=== PATIENT | female | born 1995 | race African-American/Black ===

== ENCOUNTER 2019-03-11 07:25 | Emergency (ER) | payer OTHER ==
[~2019-03-11] VITALS: Ht 162.6 cm; Wt 122.0 kg
[~2019-03-11 07:25] MED LIST: IRON; PRENATAL TABLE1 EAC3
--- OUTSIDE RECORDS SUMMARY | 2019-03-11 07:30 | XMS REPORT | Clinical Summary ---
Author Author [facility] Organization [facility] Address Unknown Phone Unavailable Care Team Providers Care Social Sciences Lecturer Name Role Phone Risa Wade MD PCP Allergies No Known Allergies Medications No known medications Active Problems Not on file Social History Date Tobacco Use Types Packs/Day Years Used Never Assessed Sex Assigned at Date Recorded Not on file Industry Job Start Date Occupation Not on file Not on file Not on file Travel End Travel History Travel Start No recent travel history available. Last Filed Vital Signs Not on file Plan of Treatment Health Maintenance Due Date Last Done Comments CHLAMYDIA SCREENING 06/08/2017 06/08/2016 INFLUENZA VACCINE 05/02/2019 Results Not on fileafter 03/10/2018 Insurance Type Payer Benefit Subscriber ID Effective Phone Address Plan / Dates Group HMO CIGNA CIGNA OPEN xxxxxxxxxxx 2016-P ACCESS/NET resent WORK HMO [employer] xxxxxxxxx 2016-P [facility]/STAR resent [facility] Advance Directives Patient has advance care planning documents on file. For more information, isabelle llanos contact: Lavell Madrigal [address] [place] [address]
--- OUTSIDE RECORDS SUMMARY | 2019-03-11 07:30 | XMS REPORT ---
Author Author [facility] Address Unknown Phone Unavailable Care Team Providers Care Silk Screen Layout Drafter Name Role Phone Unavailable Unavailable Payers Payer Name Policy Type Policy Number Effective Date Expiration Date Problems This patient has no known problems. Allergies, Adverse Reactions, Alerts Allergy Name Allergy Type Status Severity Reaction(s) Onset Date Inactive Date Treating Clinician Comments No Known Allergies DA Active U 2018-02-28 00:00:00 Medications This patient has no known medications.
[2019-03-11] MEDS ORDERED: SODIUM CHLORIDE 0.9% 1000ML 1,000 ML ONE (07:58)
[2019-03-11] MEDS ORDERED: SODIUM CHLORIDE 0.9% 1000ML 1,000 ML IV ONE ×2 (08:00→09:00)
[2019-03-11 08:07] LABS: BASOPHILS % 0.1 % (0.0-1.0); EOSINOPHILS # (AUTO) 0.1 (0.0-0.4); EOSINOPHILS % 1.2 % (0.0-6.0); HEMATOCRIT 38.1 % (34.2-44.1); HEMOGLOBIN 12.5 g/dL (12.0-16.0); LYMPHOCYTES # (AUTO) 1.4 (1.0-3.2); MEAN CORPUSCULAR HEMOGLOBIN 28.7 pg (28-32); MEAN CORPUSCULAR HGB CONC 32.8 g/dL (31-35); MEAN CORPUSCULAR VOLUME 87.4 fL (81-99); MONOCYTES # (AUTO) 0.5 (0.2-0.8); MONOCYTES % 5.8 % (4.4-11.3); NEUTROPHILS % 77.7 % (38.7-80.0); PLATELET COUNT 309 x10e3/uL (140-360); RED BLOOD COUNT 4.36 x10e6/uL (3.6-5.1); RED CELL DISTRIBUTION WIDTH 13.9 % (11.7-14.4)
[2019-03-11 08:30] LABS: ALANINE AMINOTRANSFERASE 45 IU/L (0-55); ALBUMIN 3.5 g/dL (3.5-5.0); ALBUMIN/GLOBULIN RATIO 0.9 (0.8-2.0); ALKALINE PHOSPHATASE 69 IU/L (40-150); ANION GAP 11.5 mmol/L (8-16); BLOOD UREA NITROGEN 8 mg/dL (7-26); BUN/CREATININE RATIO 10 (6-25); CALCIUM 9.4 mg/dL (8.4-10.2); CARBON DIOXIDE 22 mmol/L (22-29); CHLORIDE 106 mmol/L (98-107); EST GLOMERULAR FILTRATION RATE > 60 ML/MIN (60-); GLUCOSE 80 mg/dL (74-118); POTASSIUM 3.5 mmol/L (3.5-5.1); SODIUM 136 mmol/L (136-145)
[2019-03-11 08:40] LABS: PREGNANCY TEST, URINE NEGATIVE (NEGATIVE)
[2019-03-11 08:41] LABS: BILIRUBIN,URINE SMALL (NEGATIVE); CLARITY,URINE TURBID (CLEAR); COLOR,URINE BROWN (YELLOW); KETONES,URINE TRACE (NEGATIVE); LEUKOCYTE ESTERASE ,URINE TRACE (NEGATIVE); NITRITE,URINE POSITIVE (NEGATIVE); PROTEIN,URINE DIPSTICK 2+ (NEGATIVE); URINE UROBILINOGEN 0.2 mg/dL (0.2 - 1)
[2019-03-11] MEDS ORDERED: CEFTRIAXONE SOD 1 GM/NS 50 ML 50 ML IV ONE (09:00)
[2019-03-11 09:43] LABS: WBC,URINE (MAN) 0-5 /HPF (0-5)
[2019-03-11 09:44] LABS: BACTERIA,URINE MODERATE /HPF; EPITHELIAL CELLS,URINE RARE /LPF
--- NOTE | 2019-03-11 10:25 | Diagnostic Imaging Report ---
EXAM: CT Abdomen and Pelvis without contrast INDICATION: Left flank pain. COMPARISON: None. TECHNIQUE: Abdomen and pelvis were scanned utilizing a multidetector helical scanner from the lung base to the pubic symphysis without administration of IV or oral contrast. Coronal and sagittal reformations were obtained. Lack of IV contrast limits evaluation for visceral and vascular structures. Renal stone protocol was performed. COMPLICATIONS: None RADIATION DOSE: Total DLP: 830.7 mGy*cm Dose modulation, iterative reconstruction, and/or weight based adjustment of the mA/kV was utilized to reduce the radiation dose to as low as reasonably achievable. FINDINGS: LINES and TUBES: None. LOWER THORAX: Unremarkable HEPATOBILIARY: No evidence of focal lesion. No biliary ductal dilation. GALLBLADDER: No radio-opaque stones or sludge. No wall thickening. SPLEEN: No splenomegaly. PANCREAS: No focal masses or ductal dilatation. ADRENALS: No adrenal nodules KIDNEYS/URETERS: Kidneys enhance symmetrically. Trace left hydronephrosis There is a 4 mm calcification within the bladder near the left UVJ. There are multiple small 1 to 2 mm bilateral nonobstructing renal stones in the bilateral upper poles, right mid pole, and left lower pole. There is a 4 mm nonobstructing right midpole renal stone. No evidence of ureteral stone. GI TRACT: No evidence of wall thickening or distension. Appendix is normal. PELVIC ORGANS/BLADDER: There is an IUD in the uterus. LYMPH NODES: Multiple mildly prominent mesenteric lymph nodes, measuring up to 1 cm, for example as seen on series 3, image 66. VESSELS: Unremarkable. PERITONEUM / RETROPERITONEUM: No free air or fluid. BONES AND SOFT TISSUES: Unremarkable. CONCLUSION: A 4 mm left posterior bladder stone near the left UVJ. Trace hydronephrosis. Bilateral small nonobstructing renal stones. Mildly prominent mesenteric lymph nodes, measuring up to 1 cm are nonspecific. These could represent mesenteric adenitis or may be reactive in the appropriate clinical setting. Signed by: Dr. Loco Brand MD on 03/11/2019 10:22 AM
[2019-03-11 11:02] VITALS: BP 93/65
== END 2019-03-11 11:11 | disposition home or self-care (01) ==
LOC: ER 07:25
DX: R10.32 Left lower quadrant pain (principal); R11.2 Nausea with vomiting, unspecified; R19.7 Diarrhea, unspecified; N30.91 Cystitis, unspecified with hematuria; N20.1 Calculus of ureter
CPT/HCPCS: 36415; 74176; 80053; 81001; 81025; 83605; 85025; 99284; J0696; J7030